=== PATIENT | female | born 1940 | race Caucasian/White ===

== ENCOUNTER → 2018-04-13 | Outpatient (CLI) | payer BC, MEDICARE ==
[~2018-04-13] MED LIST: AMIODARONE; CLON0.5T3 PO; DEXL60CA PO; FENT1PAT2 SUBTEN; FERR256T PO; FURO40TA4 PO; GABA-490 PO; HYOS0.1217 PO; LEFLUNOMIDE PO; LOSARTAN; LVT.088T PO; PANT40TA2 PO; POTA99TA15 PO; PREDNISONE; REMICADE; SCR1T1 PO
== END ==
LOC: LABNPT 16:46
PROVIDERS: ATTEND Orthopaedic Surgery
DX: Z01.83 Encounter for blood typing (principal); R53.83 Other fatigue; M79.601 Pain in right arm; Z22.322 Carrier or suspected carrier of Methicillin resistant Staphylococcus aureus
CPT/HCPCS: 86850; 86870; 86900; 86901; 86902

== ENCOUNTER → 2020-10-26 | Outpatient (CLI) | payer OTHER, MEDICARE | LOC: LABNPT 11:12 | PROVIDERS: ATTEND Nurse Practitioner Family | DX: Z01.89 Encounter for other specified special examinations (principal) | CPT/HCPCS: 84145; 87635 ==